=== PATIENT | male | born 1975 | race Caucasian/White ===

== ENCOUNTER 2018-06-17 09:52 | Inpatient (IN) | payer BC, OTHER ==
[~2018-06-17] VITALS: Ht 172.7 cm; Wt 116.6 kg
[2018-06-17] MEDS ORDERED: methylPREDNISolone SOD SUCC 125 MG/2 ML VL IM ONE (10:45)
[2018-06-17] MEDS ORDERED: cefTRIAXone SOD 1,000 MG VL IM ONE (10:45)
[2018-06-17] MEDS ORDERED: SODIUM CHLORIDE 0.9% 1,000 ML IV ONE (11:00)
[2018-06-17] MEDS ORDERED: InsuLIN REG 1unit/0.01ml Soln (100units/ml) IV ONE (11:00)
[2018-06-17 11:36] LABS: Basophils # (auto) 0 uL; Basophils % (auto) 0.4 % (0.0-2.0); Eosinophils # (auto) 0 uL; Eosinophils % (auto) 0.4 % (0.0-7.0); Hematocrit 46.1 % (41.0-53.0); Hemoglobin 15.6 g/dL (13.5-17.5); Lymphocytes # (auto) 1.4 uL; Lymphocytes % (auto) 13.1 % (10.0-50.0); Mean Corpuscular Hemoglobin 27.5 pg (28.0-32.0); Mean Corpuscular Hgb Conc. 33.8 g/dL (32.0-36.0); Mean Corpuscular Volume 81.4 fL (80.0-100.0); Neutrophils # (auto) 8.3 uL; Neutrophils % (auto) 77.1 % (37.0-80.0); Nucleated Red Blood Cells % 0.4 %; Platelet Count (auto) 185 10^3/uL (140-450); Red Blood Cells 5.66 10^6/uL (4.5-5.90); Red Cell Distribution Width 13.3 % (11.8-14.3); White Blood Cell 10.7 10^3/uL (4.4-10.8)
[2018-06-17 11:52] LABS: Potassium 4.3 mmol/L (3.5-5.1)
[2018-06-17 11:59] LABS: Albumin 3.1 g/dL (3.4-5.0); BUN/Creatinine Ratio 20.2; Total Protein 7.8 g/dL (6.4-8.2)
[2018-06-17] MEDS: SODIUM CHLORIDE 0.9% 1,000 ML IV SCH ×2 (12:15→21:02)
[2018-06-17] MEDS ORDERED: DEXTROSE (50%) 50ML SYRG IV PRN (12:15)
[2018-06-17] MEDS ORDERED: ACETAMINOPHEN/CODEINE#3 (300/30mg) TAB PO ONE (14:00)
[2018-06-17] MEDS: CLINDAMYCIN 300MG IV 50 ML IV SCH ×2 (14:25→21:44)
[2018-06-17] MEDS: ACCU-CHEK COMFORT CURVE STRIP VI SCH ×3 (17:06→23:55)
[2018-06-17] MEDS: InsuLIN REG 1unit/0.01ml Soln (100units/ml) SC SCH ×3 (17:14→23:56)
[2018-06-17 19:23] VITALS: BP 146/81
--- NOTE | 2018-06-17 19:51 | NUR ---
RECEIVED PATIENT FROM DAY SHIFT RN. PATIENT RESTING IN BED. FAMILY AT BEDSIDE. NO S/S OF DISTRESS NOTED. PATIENT ASKING FOR DINNER, WILL BRING TO PATIENT LATER. ACCU-CHECK, BS 326. INSULIN GIVEN ORDERED. POC INSTRUCTED AND ENCOURAGED PATIENT TO CALL FOR MANAGER FIBER IF NEEDED. BED IN LOWEST POSITION WITH SIDE RAILS UP X 2.CALL URIARTE WITHIN REACH. CONTINUE TO MONITOR FOR CHANGES Q1H AND PRN.
--- NOTE | 2018-06-17 22:30 | NUR ---
URINE SAMPLE COLLECTED AND SENT. CONTINUE CARE.
--- NOTE | 2018-06-17 23:56 | NUR ---
ACCU-CHECK, BS 327. INSULIN GIVEN ORDERED. CONTINUE TO MONITOR.
[2018-06-18 00:05] LABS: Urine Bacteria NONE SEEN /hpf (None Seen); Urine Blood Negative /uL (Negative); Urine Specific Gravity 1.026 (1.001-1.035); Urine WBC <1 /hpf (0 - 3)
[2018-06-18 00:06] VITALS: BP 149/92
--- NOTE | 2018-06-18 02:50 | NUR ---
PATIENT SLEEPING. NO S/S OF DISTRESS AND PAIN NOTED. CONTINUE CARE.
[2018-06-18] MEDS: ACCU-CHEK COMFORT CURVE STRIP VI SCH ×5 (04:14→21:39)
[2018-06-18] MEDS: InsuLIN REG 1unit/0.01ml Soln (100units/ml) SC SCH ×4 (04:14→21:40)
--- NOTE | 2018-06-18 04:14 | NUR ---
ACCU-CHECK, BS 253. INSULIN GIVEN ORDERED. CONTINUE TO MONITOR.
[2018-06-18] MEDS: SODIUM CHLORIDE 0.9% 1,000 ML IV SCH (05:08)
[2018-06-18] MEDS: CLINDAMYCIN 300MG IV 50 ML IV SCH ×2 (05:31→13:37)
--- NOTE | 2018-06-18 05:31 | NUR ---
PATIENT SLEEPING. NO S/S OF DISTRESS AND PAIN NOTED. CONTINUE TO MONITOR.
[2018-06-18 05:52] VITALS: BP 113/65
[2018-06-18 06:40] LABS: Basophils # (auto) 0 uL; Basophils % (auto) 0.1 % (0.0-2.0); Eosinophils # (auto) 0 uL; Hematocrit 45.3 % (41.0-53.0); Hemoglobin 15.1 g/dL (13.5-17.5); Lymphocytes % (auto) 7.7 % (10.0-50.0); Mean Corpuscular Hemoglobin 27.5 pg (28.0-32.0); Mean Corpuscular Hgb Conc. 33.3 g/dL (32.0-36.0); Mean Corpuscular Volume 82.5 fL (80.0-100.0); Monocytes # (auto) 0.7 uL; Monocytes % (auto) 5.9 % (0.0-12.0); Neutrophils # (auto) 10.9 uL; Neutrophils % (auto) 86.3 % (37.0-80.0); Platelet Count (auto) 207 10^3/uL (140-450); Red Blood Cells 5.49 10^6/uL (4.5-5.90); Red Cell Distribution Width 13.3 % (11.8-14.3); White Blood Cell 12.6 10^3/uL (4.4-10.8)
[2018-06-18 06:51] LABS: BUN/Creatinine Ratio 19.7; Calcium 8.9 mg/dL (8.5-10.1); Magnesium 2.6 mg/dL (1.6-2.6); Potassium 4.8 mmol/L (3.5-5.1)
[2018-06-18 06:52] LABS: INR 0.94 (0.9-1.15); Partial Thromboplastin Time 29.3 sec (23.78-33.04); Prothrombin Time 10.1 sec (9.27-12.13)
--- NOTE | 2018-06-18 08:00 | NUR ---
Opening Shift Note Assumed care of patient, awake, alert and oriented X4. No S/S of distress/SOB or pain. IV to left forearm, 20 gauge, patent and infusing 0.9% NS @ 125 ml/hr. Right groin abscess warm, red and moist, no drainage noted. Instructed on POC and to call for assist PRN, verbalized understanding. Bed locked, in lowest position, call light within reach, will continue to monitor for changes Q1hr and PRN.
[2018-06-18] MEDS: cefTRIAXone 1GM/50ML D5W 50 ML IV SCH (08:36)
[2018-06-18 09:00] VITALS: BP 132/85
[2018-06-18] MEDS: PANTOPRAZOLE 40 MG TAB PO SCH (11:04)
[2018-06-18 12:01] VITALS: BP 133/91
[2018-06-18] MEDS ORDERED: DEXTROSE (50%) 50ML SYRG IV PRN (12:15)
[2018-06-18 12:25] LABS: Alcohol, Urine < 3.0 mg/dL (0-5); Amphetamine Screen, Urine NEGATIVE (NEGATIVE); Barbiturate Scree,Urine NEGATIVE (NEGATIVE); Benzodiazephine Screen, Urine NEGATIVE (NEGATIVE); Cannabinoid Screen, Urine NEGATIVE (NEGATIVE); Cocaine Screen, Urine NEGATIVE (NEGATIVE); Opiate Scree,Urine NEGATIVE (NEGATIVE); Phencyclidine Screen, Urine NEGATIVE (NEGATIVE)
--- NOTE | 2018-06-18 12:27 | NUR ---
ROUNDS Dr Rahman at bedside for rounds, new orders received and followed through. Patient updated on plan of care, verbalized understanding, continue care.
[2018-06-18] MEDS ORDERED: VANCOMYCIN PER PHARMACY 0 MG IV SCH (14:30)
[2018-06-18] MEDS: VANCOMYCIN 1GM/250ML 250 ML IV SCH ×2 (16:16→23:11)
[2018-06-18 16:51] VITALS: BP 146/94
[2018-06-18] MEDS ORDERED: INSULIN 70/30 1unit/0.01ml Susp (100units/ml) SC SCH (18:00)
[2018-06-18] MEDS: metFORMIN HYDROCHLORIDE 500 MG TAB PO SCH (18:04)
--- NOTE | 2018-06-18 19:09 | NUR ---
Care endorsed to SHANE Smith, night nurse.
--- NOTE | 2018-06-18 19:30 | NUR ---
Opening shift note Patient in bed alert and oriented x 4, verbally coherent, able to make needs known. Patient's respiration even and unlabored. Patient denies pain and discomfort at this time. Plan of care discussed, patient verbalized understanding. Spouse at bedside. All needs attended, will continue to monitor.
[2018-06-18] MEDS ORDERED: ATORVASTATIN 20 MG TAB PO SCH (22:00)
[2018-06-18 22:15] VITALS: BP 151/96
--- NOTE | 2018-06-19 02:10 | NUR ---
PATIENT WOKE UP AND COMPLAINING OF MUSCLE PAIN. PER PT, "THIS IS THE FIRST TIME I AM FEELING THIS KIND OF MUSCLE PAIN AND THIS WOULD NOT HAPPEN IF YOU HAVE NOT GIVEN ME THE LIPITOR EARLIER" EXPLAINED TO PATIENT THAT IT WAS ORDERED BY THE DOCTOR. FURTHER EXPLAINED THAT ONLY 1/2 A TAB = 10MG WAS GIVEN AND WILL INFORM AM SHIFT NURSE TO DISCUSS WITH MD IN THE MORNING IF THERE IS A NEED TO DISCONTINUE THE MEDICATION. INFORMED PATIENT THAT IT COULD BE A LOT OF REASONS FOR HIS MUSCLE PAIN SINCE HE WAS DIAGNOSED WITH NEW ONSET DIABETES WITH SYMPTOMS OF NEUROPATHY. PATIENT ALSO HAS BEEN TAKING ANTIBIOTIC. PATIENT REFUSED FOR NURSE TO GET AN ORDER FOR PAIN MEDICATION AT THIS TIME. INFORMED NURSE THAT IF THE PAIN DOES NOT SUBSIDE, HE WILL LET THE NURSE KNOW THE NEED FOR PAIN MEDICATION ORDER. WILL CONTINUE TO MONITOR.
--- NOTE | 2018-06-19 04:14 | NUR ---
PATIENT COMPLAINED OF MODERATE PAIN TO LEFT GROIN ABSCESS. NO PAIN MEDICATION AVAILABLE. PAGE DERRICK GUTIERREZ AWAITING CALL BACK. Addendum: 06/19/18 at 0541 by Silvana Mcnulty RN PATIENT ALSO COMPLAINED OF MODERATE MUSCLE PAIN TO "ALL OVER MY BODY".
--- NOTE | 2018-06-19 04:50 | NUR ---
RECEIVED CALL BACK FROM RECOVERY AGENT REGARDING PAIN MEDICATION. RECEIVED NEW ORDER FROM GUTIERREZ, ALL ORDERS NOTED AND CARRIED OUT.
[2018-06-19] MEDS ORDERED: HYDROcodone-ACET 5/325MG TAB PO PRN (05:00)
--- NOTE | 2018-06-19 05:00 | NUR ---
PAIN MEDICATION ADMINISTERED FOR MUSCLE PAIN AND LEFT GROIN ABSCESS. WILL CONTINUE TO MONITOR.
[2018-06-19 05:05] VITALS: BP 149/107
[2018-06-19 06:29] LABS: Basophils # (auto) 0 uL; Basophils % (auto) 0.2 % (0.0-2.0); Eosinophils # (auto) 0.1 uL; Eosinophils % (auto) 0.7 % (0.0-7.0); Hematocrit 41.7 % (41.0-53.0); Hemoglobin 14.1 g/dL (13.5-17.5); Lymphocytes # (auto) 1.5 uL; Lymphocytes % (auto) 14.8 % (10.0-50.0); Mean Corpuscular Hemoglobin 27.9 pg (28.0-32.0); Mean Corpuscular Hgb Conc. 33.9 g/dL (32.0-36.0); Mean Corpuscular Volume 82.4 fL (80.0-100.0); Neutrophils # (auto) 7.6 uL; Neutrophils % (auto) 74.3 % (37.0-80.0); Platelet Count (auto) 194 10^3/uL (140-450); Red Blood Cells 5.06 10^6/uL (4.5-5.90); Red Cell Distribution Width 13.2 % (11.8-14.3); White Blood Cell 10.2 10^3/uL (4.4-10.8)
[2018-06-19] MEDS: ACCU-CHEK COMFORT CURVE STRIP VI SCH ×4 (06:35→21:47)
[2018-06-19] MEDS: InsuLIN REG 1unit/0.01ml Soln (100units/ml) SC SCH ×4 (06:35→21:47)
[2018-06-19 06:39] LABS: Calcium 8.2 mg/dL (8.5-10.1); Potassium 3.7 mmol/L (3.5-5.1)
[2018-06-19 06:43] LABS: BUN/Creatinine Ratio 16.7
--- NOTE | 2018-06-19 08:00 | NUR ---
Opening Shift Note Assumed care of patient, awake, alert and oriented X4. No S/S of distress/SOB or pain. Iv to right forearm, 20 gauge, patent and infusing 0.9% NS @ 125 ml/hr. Right groin abscess draining purulent drainage with mild odor, redness around surrounding area, open to air. Instructed on POC and to call for assist PRN, verbalized understanding. Bed locked, in lowest position, call light within reach, will continue to monitor for changes Q1hr and PRN.
[2018-06-19 09:21] VITALS: BP 139/75
[2018-06-19] MEDS ORDERED: LISINOPRIL 5 MG TAB PO SCH (10:00)
[2018-06-19] MEDS: cefTRIAXone 1GM/50ML D5W 50 ML IV SCH (10:02)
[2018-06-19] MEDS: metFORMIN HYDROCHLORIDE 500 MG TAB PO SCH ×2 (10:02→17:37)
[2018-06-19] MEDS: PANTOPRAZOLE 40 MG TAB PO SCH (10:02)
[2018-06-19] MEDS: VANCOMYCIN 1GM/250ML 250 ML IV SCH (10:02)
--- NOTE | 2018-06-19 10:05 | NUR ---
Patient complaining of ringing in bilateral ears. Currently infusing Vancomycin IVPB. Infusion stopped, Dr Rahman notified, verbalized understanding. Will continue to monitor Q 1 hour and PRN.
--- NOTE | 2018-06-19 11:21 | NUR ---
ROUNDS Dr Rahman at bedside for rounds, new order received and followed through. Patient updated on plan of care, verbalized understanding.
[2018-06-19 13:08] VITALS: BP 147/88
[2018-06-19] MEDS: PIPERACILLIN-TAZO 4.5GM 100 ML IV SCH ×2 (15:07→21:47)
[2018-06-19 17:00] VITALS: BP 142/101
[2018-06-19] MEDS: INSULIN 70/30 1unit/0.01ml Susp (100units/ml) SC SCH (17:38)
--- NOTE | 2018-06-19 19:21 | NUR ---
Care endorsed to SHANE Whittaker, night nurse.
--- NOTE | 2018-06-19 19:49 | NUR ---
report received from day rn poc reviewed
[2018-06-19 21:30] VITALS: BP 141/85
--- NOTE | 2018-06-19 22:05 | NUR ---
PTS BS 119 REEDUCATED PT ON BLOOD GLUCOSE LEVELS, ALL QUESTIONS AND CONCERNS ADDRESSED
[2018-06-20 05:26] VITALS: BP 149/93
[2018-06-20] MEDS: PIPERACILLIN-TAZO 4.5GM 100 ML IV SCH (06:10)
[2018-06-20] MEDS: ACCU-CHEK COMFORT CURVE STRIP VI SCH ×4 (06:10→21:34)
[2018-06-20] MEDS: InsuLIN REG 1unit/0.01ml Soln (100units/ml) SC SCH ×4 (06:11→21:33)
--- NOTE | 2018-06-20 07:25 | NUR ---
report given to am nurse poc reviewed
--- NOTE | 2018-06-20 08:00 | NUR ---
Opening Shift Note Assumed care of patient, awake, alert and oriented X4. No S/S of distress/SOB or pain. IV to left forearm, 20 gauge, patent and infusing 0.9% NS @ 125 ml/hr. Instructed on POC and to call for assist PRN, verbalized understanding. Bed locked, in lowest position, call light within reach, will continue to monitor for changes Q1hr and PRN.
[2018-06-20] MEDS: metFORMIN HYDROCHLORIDE 500 MG TAB PO SCH (08:13)
[2018-06-20] MEDS: INSULIN 70/30 1unit/0.01ml Susp (100units/ml) SC SCH ×2 (08:13→16:10)
[2018-06-20 08:41] VITALS: BP 151/88
--- NOTE | 2018-06-20 08:43 | NUR ---
LINEN CHANGE PT GIVEN LINEN CHANGE
[2018-06-20] MEDS: PANTOPRAZOLE 40 MG TAB PO SCH (09:51)
[2018-06-20] MEDS: LISINOPRIL 10 MG TAB PO SCH (09:51)
--- NOTE | 2018-06-20 09:51 | NUR ---
ROUNDS Dr Rahman at bedside for rounds, new orders received and followed through. Patient updated on plan of care, verbalized understanding.
[2018-06-20] MEDS: LEVOFLOXACIN 750MG 150 ML IV SCH (11:10)
--- NOTE | 2018-06-20 12:40 | NUR ---
Nutrition Consult/Assessment Notes please see attached link for complete assessment Est. Needs based on ABW (93 kg): 7534-1058 kcal (20-23 kcal/kgBW), 93-102 gms pro (1.0-1.1 gms/kgBW d/t wounds). Will continue to monitor pertinent labs and reassess nutrient need prn Addendum: 06/20/18 at [address] Amended: Links added.
[2018-06-20 13:00] VITALS: BP 127/81
[2018-06-20] MEDS: metFORMIN HYDROCHLORIDE 850 MG TAB PO SCH (16:10)
[2018-06-20 16:43] VITALS: BP 127/90
--- NOTE | 2018-06-20 19:28 | NUR ---
Care endorsed to SHANE Fairbanks, night nurse.
--- NOTE | 2018-06-20 19:55 | NUR ---
assumed care, pt. awake, relatives at bedside, no c/o pain, no sob.
[2018-06-20 21:31] VITALS: BP 141/93
[2018-06-20] MEDS: MULTIPLE VITAMINS W/ MINERALS TAB PO SCH (21:33)
[2018-06-20] MEDS: ASCORBIC ACID 500 MG TAB PO SCH (21:33)
[2018-06-21 05:15] VITALS: BP 130/87
[2018-06-21] MEDS: ACCU-CHEK COMFORT CURVE STRIP VI SCH ×4 (06:09→21:09)
[2018-06-21] MEDS: InsuLIN REG 1unit/0.01ml Soln (100units/ml) SC SCH ×4 (06:09→21:09)
--- NOTE | 2018-06-21 07:45 | NUR ---
OPENING SHIFT PATIENT AWAKE, ALERT, AND ORIENTED X4. RESPIRATIONS EVEN AND UNLABORED. LEFT GROIN ABSCESS, FIRM AND TENDER TO PALPITATION, WITH MINIMAL SEROUS DRAINAGE OBSERVED. NO S/S OF DISTRESS OR SOB. DISCUSSED POC WITH PATIENT. PATIENT VERBALIZED UNDERSTANDING. BED IS IN LOWEST POSITION, SIDE RAILS UP X2, AND CALL LIGHT WITHIN REACH. WILL CONTINUE TO MONITOR Q1 HOUR AND PRN.
[2018-06-21] MEDS: metFORMIN HYDROCHLORIDE 850 MG TAB PO SCH ×2 (08:28→18:12)
[2018-06-21] MEDS: INSULIN 70/30 1unit/0.01ml Susp (100units/ml) SC SCH ×2 (08:28→18:12)
[2018-06-21 09:08] VITALS: BP 143/98
--- NOTE | 2018-06-21 12:20 | NUR ---
WOUND CARE NOTE: IN TO SEE PATIENT AT THIS TIME FOR WOUND TO LEFT INGUINAL AREA. PATIENT ADMITTED TO [facility] WITH DIAGNOSIS OF ABSCESS. HE IS NOTED TO HAVE A SMALL DRAINING ABSCESS TO THE LEFT INGUINAL AREA, DRAINING LIGHT AMOUNTS OF PURULENT DRAINAGE. THERE IS ERYTHEMA AND INDURATION NOTED TO UPPER MEDIAL THIGH TO LEFT INGUINAL GROIN. AREA IS CIRCLED WITH BLACK MARKER. WOUND PHOTO TAKEN FOR REFERENCE. SURGEON HAS STATED THAT PATIENT WOULD BENEFIT FROM CONSERVATIVE MANAGEMENT. PATIENT MAY BENEFIT FROM WARM COMPRESSES BID/PRN TO HELP DRAW OUT MORE DRAINAGE, SURGICAL INTERVENTION IS NOT BEING ENTERTAINED AT THIS TIME. PATIENT SHOULD ALSO HAVE PRN DRESSING CHANGES TO LEFT INGUINAL AREA WITH ABD PAD, SECURING WITH DISPOSABLE UNDERWEAR, DIETARY CONSULT, CONTINUED MONITORING BY WOUND CARE TEAM.
--- NOTE | 2018-06-21 12:30 | NUR ---
WOUND CARE R.N. WOUND CARE R.N. AT BEDSIDE R.N. RECOMMENDATION IS FOR PATIENT HAVE INTERVENTION TO DRAIN ABSCESS WILL INFORM Irma
[2018-06-21] MEDS: LEVOFLOXACIN 750MG 150 ML IV SCH (12:54)
[2018-06-21] MEDS: PANTOPRAZOLE 40 MG TAB PO SCH (12:54)
[2018-06-21] MEDS: MULTIPLE VITAMINS W/ MINERALS TAB PO SCH ×2 (12:54→21:08)
[2018-06-21] MEDS: ASCORBIC ACID 500 MG TAB PO SCH ×2 (12:55→21:08)
[2018-06-21] MEDS: LISINOPRIL 10 MG TAB PO SCH (12:55)
[2018-06-21 13:00] VITALS: BP 138/99
--- NOTE | 2018-06-21 16:46 | NUR ---
DR. MARIBELL Will AT BEDSIDE DISCUSSING POC WITH PATIENT. PATIENT VERBALIZED UNDERSTANDING AT BEDSIDE PATIENT WILL NOT BE D/C'D TODAY. I.V ANTIBIOTICS WILL BE CONTINUED AND ZOSYN WILL BE ADDED TO MEDICATION REGIMEN PATIENT IS CONTINUING TO APPLY HEAT TO LEFT GROIN ABSCESS AREA TO HELP RELIEVE PRESSURE
[2018-06-21 17:00] VITALS: BP 130/87
[2018-06-21] MEDS: PIPERACILLIN-TAZOB 3.375GM 100 ML IV SCH (17:04)
--- NOTE | 2018-06-21 18:38 | NUR ---
END OF SHIFT PATIENT RESTING IN BED. NO S/S OF DISTRESS, SOB, OR PAIN. AT BEDSIDE. RESPIRATIONS EVEN AND UNLABORED. BED IS IN LOWEST POSITION, SIDE RAILS UP X2, AND CALL LIGHT WITHIN REACH. WILL ENDORSE ARE TO JOINT CUTTER MACHINE R.N.
--- NOTE | 2018-06-21 19:20 | NUR ---
ASSUMED CARE, PT. AWAKE, RELATIVE AT BEDSIDE, NO C/O PAIN, NO SOB.
[2018-06-21 21:53] VITALS: BP 138/98
[2018-06-22] MEDS: PIPERACILLIN-TAZOB 3.375GM 100 ML IV SCH ×5 (00:02→23:41)
[2018-06-22 04:58] VITALS: BP 130/84
[2018-06-22 05:39] LABS: Basophils # (auto) 0 uL; Basophils % (auto) 0.5 % (0.0-2.0); Eosinophils # (auto) 0.2 uL; Eosinophils % (auto) 2.4 % (0.0-7.0); Hematocrit 42.2 % (41.0-53.0); Hemoglobin 14.5 g/dL (13.5-17.5); Lymphocytes # (auto) 1.9 uL; Lymphocytes % (auto) 24.7 % (10.0-50.0); Mean Corpuscular Hemoglobin 27.8 pg (28.0-32.0); Mean Corpuscular Hgb Conc. 34.4 g/dL (32.0-36.0); Mean Corpuscular Volume 80.8 fL (80.0-100.0); Monocytes # (auto) 0.7 uL; Monocytes % (auto) 8.7 % (0.0-12.0); Neutrophils % (auto) 63.7 % (37.0-80.0); Nucleated Red Blood Cells % 0.2 %; Platelet Count (auto) 234 10^3/uL (140-450); Red Blood Cells 5.22 10^6/uL (4.5-5.90); Red Cell Distribution Width 13.1 % (11.8-14.3); White Blood Cell 7.9 10^3/uL (4.4-10.8)
[2018-06-22 05:55] LABS: BUN/Creatinine Ratio 14.3; Calcium 8.9 mg/dL (8.5-10.1)
[2018-06-22] MEDS: InsuLIN REG 1unit/0.01ml Soln (100units/ml) SC SCH ×4 (06:05→21:48)
[2018-06-22] MEDS: ACCU-CHEK COMFORT CURVE STRIP VI SCH ×4 (06:06→21:48)
--- NOTE | 2018-06-22 07:35 | NUR ---
OPENING SHIFT PATIENT AWAKE, ALERT, AND ORIENTED X4. RESPIRATIONS EVEN AND UNLABORED. LEFT GROIN ABSCESS, FIRM AND TENDER TO PALPITATION, WITH MINIMAL SEROSANGUINEOUS DRAINAGE OBSERVED. NO S/S OF DISTRESS OR SOB. DISCUSSED POC WITH PATIENT. PATIENT VERBALIZED UNDERSTANDING. BED IS IN LOWEST POSITION, SIDE RAILS UP X2, AND CALL LIGHT WITHIN REACH. WILL CONTINUE TO MONITOR Q1 HOUR AND PRN.
[2018-06-22] MEDS: metFORMIN HYDROCHLORIDE 850 MG TAB PO SCH ×2 (08:14→17:53)
[2018-06-22] MEDS: INSULIN 70/30 1unit/0.01ml Susp (100units/ml) SC SCH ×3 (08:14→17:57)
[2018-06-22 08:29] VITALS: BP 133/83
[2018-06-22] MEDS: PANTOPRAZOLE 40 MG TAB PO SCH (11:22)
[2018-06-22] MEDS: LISINOPRIL 10 MG TAB PO SCH (11:22)
[2018-06-22] MEDS: ASCORBIC ACID 500 MG TAB PO SCH ×2 (11:22→21:47)
[2018-06-22] MEDS: MULTIPLE VITAMINS W/ MINERALS TAB PO SCH ×2 (11:22→21:47)
--- NOTE | 2018-06-22 11:50 | NUR ---
DR. MARIBELL Solis AT BEDSIDE DISCUSSING POC WITH PATIENT, PATIENT VERBALIZED UNDERSTANDING.
[2018-06-22 12:57] VITALS: BP 139/92
--- NOTE | 2018-06-22 16:56 | NUR ---
PATIENT REFUSED WOUND CARE ORDERS PLACED BY DR. REYNA FOR ABSCESS TO BE CLEANED WITH NORMAL SALINE, PATTED DRY WITH STERILE GUAZE, AND FOR ABDOMINAL PAD DRESSING TO BE PLACED AND SECURED WITH NETTED BRIEFS PATIENT STATES, "IT IS FINE IS. IT IS CONSTANTLY LEAKING AND I LIKE TO USE WET, HOT COMPRESSES ON IT. " INFORMED PATIENT OF RISKS AND BENEFITS OF DRESSING, AND REFUSAL OF DRESSING PATIENT VERBALIZED UNDERSTANDING
[2018-06-22 17:25] VITALS: BP_SYST 118; BP_SYST 123; BP_DIAS 58; BP_DIAS 76
--- NOTE | 2018-06-22 18:37 | NUR ---
END OF SHIFT PATIENT RESTING IN BED. NO S/S OF DISTRESS, SOB, OR PAIN. RESPIRATIONS EVEN AND UNLABORED. BED IS IN LOWEST POSITION, SIDE RAILS UP X2, AND CALL LIGHT WITHIN REACH. WILL ENDORSE ARE TO PLY BANDER R.N.
--- NOTE | 2018-06-22 19:55 | NUR ---
assumed care, pt. awake, relative at bedside, no c/o pain, no sob.
[2018-06-22 21:42] VITALS: BP 133/82
[2018-06-23 04:46] VITALS: BP 130/83
[2018-06-23 05:53] LABS: Basophils # (auto) 0 uL; Basophils % (auto) 0.4 % (0.0-2.0); Eosinophils # (auto) 0.2 uL; Eosinophils % (auto) 2.7 % (0.0-7.0); Hematocrit 41.7 % (41.0-53.0); Hemoglobin 14.4 g/dL (13.5-17.5); Mean Corpuscular Hemoglobin 28.1 pg (28.0-32.0); Mean Corpuscular Hgb Conc. 34.6 g/dL (32.0-36.0); Mean Corpuscular Volume 81.2 fL (80.0-100.0); Monocytes # (auto) 0.6 uL; Monocytes % (auto) 8.7 % (0.0-12.0); Neutrophils # (auto) 4.6 uL; Neutrophils % (auto) 61.2 % (37.0-80.0); Platelet Count (auto) 221 10^3/uL (140-450); Red Blood Cells 5.14 10^6/uL (4.5-5.90); Red Cell Distribution Width 13.1 % (11.8-14.3); White Blood Cell 7.5 10^3/uL (4.4-10.8)
[2018-06-23] MEDS: InsuLIN REG 1unit/0.01ml Soln (100units/ml) SC SCH ×4 (06:00→22:29)
[2018-06-23] MEDS: PIPERACILLIN-TAZOB 3.375GM 100 ML IV SCH (06:00)
[2018-06-23] MEDS: ACCU-CHEK COMFORT CURVE STRIP VI SCH ×4 (06:02→22:00)
[2018-06-23 06:09] LABS: BUN/Creatinine Ratio 11.6; Calcium 8.7 mg/dL (8.5-10.1); Potassium 3.9 mmol/L (3.5-5.1)
--- NOTE | 2018-06-23 07:52 | NUR ---
OPENING SHIFT NOTE ASSUMED CARE OF PATIENT. PATIENT AWAKE AND ALERT SITTING UP IN BED. NO S/S OF DISTRESS OR SOB NOTED. REVIEWED POC WITH PATIENT AND INSTRUCTED TO CALL FOR ASSIST NEEDED. WILL CONTINUE TO MONITOR.
[2018-06-23 08:00] VITALS: BP 152/96
--- NOTE | 2018-06-23 08:30 | NUR ---
PATIENT TEACHING PATIENT INSTRUCTED ON USE OF ACCU CHECK MACHINE, PATIENT STATED HE HAS ONE AT BEDSIDE AND HAS BEEN USING TO CHECK WELL. PATIENT INFORMED OF S/S OF LOW BLOOD SUGAR AND PATIENT VERBALIZED UNDERSTANDING AT THIS TIME. WILL CONTINUE TO MONITOR.
[2018-06-23] MEDS: ASCORBIC ACID 500 MG TAB PO SCH ×2 (08:37→22:29)
[2018-06-23] MEDS: metFORMIN HYDROCHLORIDE 850 MG TAB PO SCH ×2 (08:37→18:05)
[2018-06-23] MEDS: MULTIPLE VITAMINS W/ MINERALS TAB PO SCH ×2 (08:37→22:32)
[2018-06-23] MEDS: PANTOPRAZOLE 40 MG TAB PO SCH (08:38)
[2018-06-23] MEDS: LISINOPRIL 10 MG TAB PO SCH (08:38)
[2018-06-23] MEDS: INSULIN 70/30 1unit/0.01ml Susp (100units/ml) SC SCH ×2 (08:39→18:07)
[2018-06-23] MEDS ORDERED: HYDROcodone-ACET 5/325MG TAB PO PRN (09:15)
[2018-06-23] MEDS: CIPROFLOXACIN 400MG/200ML 200 ML IV SCH ×2 (11:28→22:33)
[2018-06-23 12:00] VITALS: BP 119/73
[2018-06-23 16:58] VITALS: BP 123/74
--- NOTE | 2018-06-23 19:03 | NUR ---
END OF SHIFT NOTE PATIENT RESTING COMFORTABLY IN BED AT THIS TIME. NO S/S OF DISTRESS OR SOB NOTED. BED IN LOWEST LOCKED POSITION, CALL LIGHT WITHIN REACH. WILL ENDORSE CARE TO NOC RN.
[2018-06-23 22:00] VITALS: BP 124/80
[2018-06-23] MEDS ORDERED: ATORVASTATIN 20 MG TAB PO SCH (22:00)
[2018-06-24 05:00] VITALS: BP 119/79
[2018-06-24] MEDS: ACCU-CHEK COMFORT CURVE STRIP VI SCH ×2 (05:52→12:02)
[2018-06-24] MEDS: InsuLIN REG 1unit/0.01ml Soln (100units/ml) SC SCH ×2 (05:53→12:02)
--- NOTE | 2018-06-24 06:59 | NUR ---
The patient had an uneventful night, tolerated treatments well, had no complaints. Denied pain throughout the night. The patient decided to refused the scheduled Atorvaststin . After discuss it with his they decide it was not worth taking it and possibly staying in the Hospital longer. Will continue to monitor.
[2018-06-24] MEDS: metFORMIN HYDROCHLORIDE 850 MG TAB PO SCH (08:30)
[2018-06-24] MEDS: INSULIN 70/30 1unit/0.01ml Susp (100units/ml) SC SCH (08:30)
[2018-06-24 09:00] VITALS: BP 139/93
[2018-06-24] MEDS: ASCORBIC ACID 500 MG TAB PO SCH (10:25)
[2018-06-24] MEDS: MULTIPLE VITAMINS W/ MINERALS TAB PO SCH (10:25)
[2018-06-24] MEDS: PANTOPRAZOLE 40 MG TAB PO SCH (10:25)
[2018-06-24] MEDS: LISINOPRIL 10 MG TAB PO SCH (10:26)
[2018-06-24] MEDS: CIPROFLOXACIN 400MG/200ML 200 ML IV SCH (10:26)
[2018-06-24] MEDS ORDERED: ASCO500T11 PO (10:31)
[2018-06-24] MEDS ORDERED: LISI10TA6 PO (10:31)
[2018-06-24] MEDS ORDERED: CIPR-173 PO (10:31)
[2018-06-24] MEDS ORDERED: METF850T PO (10:31)
[2018-06-24 13:31] VITALS: BP 139/93
--- NOTE | 2018-06-24 14:44 | NUR ---
DISCHARGED PATIENT DISCHARGED HOME VIA AMBULATORY TO PRIVATE FAMILY VEHICLE AFTER ALL DISCHARGE INSTRUCTIONS GIVEN AND ALL QUESTIONS AND CONCERNS ADDRESSED. DIABETIC EDUCATION GIVEN INCLUDING INFORMATION ON CLASSES AVAILABLE, HOW TO CHECK BLOOD SUGAR, HOW TO ADMINISTER INSULIN, DIET INFORMATION, FOOT CARE AND MORE GIVEN TO PATIENT AND SPOUSE. PATIENT WAS ASSISTED WITH FINDING A NEW PRIMARY MD AND A FOLLOW UP APPOINTMENT WAS SET UP. WOUND PICTURE TAKEN AT THIS TIME. IV WAS REMOVED USING CLEAN STERILE TECHNIQUE, CATHETER WAS INTACT UPON REMOVAL AND PRESSURE DRESSING PLACED. PATIENT SHOWED NO S/S OF DISTRESS OR SOB NOTED AT THIS TIME.
== END 2018-06-24 14:48 | disposition home or self-care (01) | DRG 603 ==
LOC: ER 09:52 → OVERFLOW 12:10 → WEST WING 18:30
PROVIDERS: ADMIT Nurse Practitioner Acute Care; ATTEND Internal Medicine
DX: L02.214 Cutaneous abscess of groin (principal); E44.0 Moderate protein-calorie malnutrition; L03.314 Cellulitis of groin; E11.65 Type 2 diabetes mellitus with hyperglycemia; E66.01 Morbid (severe) obesity due to excess calories; E78.5 Hyperlipidemia, unspecified; E78.1 Pure hyperglyceridemia; I10 Essential (primary) hypertension; B96.20 Unspecified Escherichia coli [E. coli] as the cause of diseases classified elsewhere; E86.0 Dehydration; H93.19 Tinnitus, unspecified ear; Z88.7 Allergy status to serum and vaccine; Z68.39 Body mass index [BMI] 39.0-39.9, adult
CPT/HCPCS: 36415; 71045; 80048; 80053; 80061; 80307; 81001; 82962; 83036; 83605; 83735; 84443; 85025; 85610; 85730; 87040; 87077; 87186; 87205; 93926; 96361; 96372; 96374; G0378; J0696; J1815; J1956; J2543; J3490

== ENCOUNTER → 2018-10-03 | Outpatient (CLI) | payer BC ==
[~2018-10-03] MED LIST: ASCO500T11 PO; CIPR-173 PO; LISI10TA6 PO; METF850T PO
[2018-10-03 09:48] LABS: Cholesterol 280 mg/dL (< 200)
[2018-10-03 09:50] LABS: HDL Cholesterol 31 mg/dL (40-59); LDL Cholesterol 203 mg/dL (< 100); Triglycerides 244 mg/dL (< 150)
== END | disposition home or self-care (01) ==
LOC: LAB 08:45
PROVIDERS: ATTEND Internal Medicine
DX: E11.9 Type 2 diabetes mellitus without complications (principal)
CPT/HCPCS: 36415; 80061; 82043; 83036

== ENCOUNTER → 2018-11-04 | Outpatient (CLI) | payer BC ==
[2018-11-04 16:05] LABS: Albumin 3.8 g/dL (3.4-5.0); Calcium 8.8 mg/dL (8.5-10.1); Potassium 4.5 mmol/L (3.5-5.1)
[2018-11-04 16:11] LABS: BUN/Creatinine Ratio 24.5; Bilirubin, Total 0.4 mg/dL (0.2-1.0); Total Protein 7.7 g/dL (6.4-8.2)
== END | disposition home or self-care (01) ==
LOC: LAB 15:15
PROVIDERS: ATTEND Internal Medicine
DX: E11.9 Type 2 diabetes mellitus without complications (principal)
CPT/HCPCS: 36415; 80053

== ENCOUNTER → 2019-01-07 | Outpatient (CLI) | payer BC ==
[2019-01-07 15:18] LABS: Basophils # (auto) 0 uL; Basophils % (auto) 0.5 % (0.0-2.0); Eosinophils # (auto) 0.1 uL; Eosinophils % (auto) 1.5 % (0.0-7.0); Hematocrit 43.6 % (41.0-53.0); Hemoglobin 14.8 g/dL (13.5-17.5); Lymphocytes # (auto) 2.2 uL; Lymphocytes % (auto) 25.3 % (10.0-50.0); Mean Corpuscular Hemoglobin 27.8 pg (28.0-32.0); Mean Corpuscular Volume 81.8 fL (80.0-100.0); Monocytes # (auto) 0.7 uL; Monocytes % (auto) 7.7 % (0.0-12.0); Neutrophils # (auto) 5.5 uL; Nucleated Red Blood Cells % 0.1 %; Platelet Count (auto) 202 10^3/uL (140-450); Red Blood Cells 5.34 10^6/uL (4.5-5.90); Red Cell Distribution Width 13.5 % (11.8-14.3); White Blood Cell 8.5 10^3/uL (4.4-10.8)
[2019-01-07 15:38] LABS: Urine Blood Negative /uL (Negative); Urine Specific Gravity 1.019 (1.001-1.035)
[2019-01-07 15:42] LABS: Albumin 3.7 g/dL (3.4-5.0); BUN/Creatinine Ratio 28.4; Calcium 8.4 mg/dL (8.5-10.1); Potassium 4.4 mmol/L (3.5-5.1); Uric Acid 7.4 mg/dL (3.5-7.2)
[2019-01-07 15:45] LABS: Bilirubin, Total 0.4 mg/dL (0.2-1.0); Total Protein 7.7 g/dL (6.4-8.2)
[2019-01-07 15:52] LABS: Creatinine, Urine 79 mg/dL (30.0-125.0); Protein, Urine 79.9 mg/dL (0.0-11.9)
[2019-01-08 12:39] LABS: Hepatitis B Surface Antigen Negative (Negative)
[2019-01-08 14:04] LABS: Hepatitis C Antibody Negative (Negative)
== END | disposition home or self-care (01) ==
LOC: LAB 14:40
PROVIDERS: ATTEND Internal Medicine
DX: E55.9 Vitamin D deficiency, unspecified (principal); R80.9 Proteinuria, unspecified; B17.9 Acute viral hepatitis, unspecified; R79.82 Elevated C-reactive protein (CRP); M10.9 Gout, unspecified; D63.1 Anemia in chronic kidney disease; N18.3 Chronic kidney disease, stage 3 (moderate); R70.0 Elevated erythrocyte sedimentation rate; N39.0 Urinary tract infection, site not specified; R76.0 Raised antibody titer; E21.3 Hyperparathyroidism, unspecified
CPT/HCPCS: 36415; 80053; 80069; 81003; 82306; 82570; 83970; 84156; 84550; 85025; 85652; 86038; 86160; 86162; 86803; 87340

== ENCOUNTER → 2019-02-16 | Outpatient (CLI) | payer BC ==
[2019-02-16 16:24] LABS: Protein, Urine 51.9 mg/dL (0.0-11.9)
[2019-02-16 16:31] LABS: 24 Hr. Total Protein, Urine 1899.5 mg/24 Hr (<149.1)
[2019-02-16 16:53] LABS: Creatinine Clearance, Urine 814.27 mL/min (75-115)
== END | disposition home or self-care (01) ==
LOC: LAB 15:12
PROVIDERS: ATTEND Internal Medicine
DX: E11.22 Type 2 diabetes mellitus with diabetic chronic kidney disease (principal); N18.3 Chronic kidney disease, stage 3 (moderate); R80.9 Proteinuria, unspecified; Z88.7 Allergy status to serum and vaccine
CPT/HCPCS: 82575; 84156

== ENCOUNTER → 2019-02-24 | Outpatient (CLI) | payer BC ==
[2019-02-24 14:23] LABS: Cholesterol 278 mg/dL (< 200); HDL Cholesterol 32 mg/dL (40-59); LDL Cholesterol 165 mg/dL (< 100); Triglycerides 335 mg/dL (< 150)
== END | disposition home or self-care (01) ==
LOC: LAB 13:37
PROVIDERS: ATTEND Internal Medicine
DX: E11.9 Type 2 diabetes mellitus without complications (principal)
CPT/HCPCS: 36415; 80061; 82043; 83036

== ENCOUNTER → 2019-06-03 | Outpatient (CLI) | payer BC ==
[2019-06-03 17:48] LABS: Albumin 3.5 g/dL (3.4-5.0); Calcium 8.9 mg/dL (8.5-10.1); Potassium 4.1 mmol/L (3.5-5.1)
[2019-06-03 17:53] LABS: Bilirubin, Total 0.5 mg/dL (0.2-1.0); Total Protein 7.7 g/dL (6.4-8.2)
== END | disposition home or self-care (01) ==
LOC: LAB 15:19
PROVIDERS: ATTEND Internal Medicine
DX: E11.22 Type 2 diabetes mellitus with diabetic chronic kidney disease (principal); N18.3 Chronic kidney disease, stage 3 (moderate); R80.9 Proteinuria, unspecified
CPT/HCPCS: 36415; 80053; 80061; 82306

== ENCOUNTER → 2019-06-19 | Outpatient (CLI) | payer BC ==
[2019-06-19 16:03] LABS: Albumin 3.5 g/dL (3.4-5.0)
[2019-06-19 16:08] LABS: Bilirubin, Direct 0.1 mg/dL (0-0.2); Bilirubin, Total 0.6 mg/dL (0.2-1.0); Total Protein 7.6 g/dL (6.4-8.2)
== END | disposition home or self-care (01) ==
LOC: LAB 15:20
PROVIDERS: ATTEND Internal Medicine
DX: E78.5 Hyperlipidemia, unspecified (principal)
CPT/HCPCS: 36415; 80076

== ENCOUNTER → 2019-08-05 | Outpatient (CLI) | payer BC ==
[2019-08-05 15:41] LABS: Calcium 8.8 mg/dL (8.5-10.1); Potassium 4.1 mmol/L (3.5-5.1)
[2019-08-05 15:44] LABS: BUN/Creatinine Ratio 16.8
== END | disposition home or self-care (01) ==
LOC: LAB 15:08
PROVIDERS: ATTEND Internal Medicine
DX: E11.9 Type 2 diabetes mellitus without complications (principal); E78.5 Hyperlipidemia, unspecified
CPT/HCPCS: 36415; 80048; 80061; 83036

== ENCOUNTER → 2019-08-19 | Outpatient (CLI) | payer BC ==
[2019-08-19 15:09] LABS: Basophils # (auto) 0.1 10 ^3/uL (0-0.2); Basophils % (auto) 0.6 % (0.0-2.0); Eosinophils # (auto) 0.2 10 ^3/uL (0-0.8); Eosinophils % (auto) 1.7 % (0.0-7.0); Hematocrit 44.2 % (41.0-53.0); Hemoglobin 14.8 g/dL (13.5-17.5); Lymphocytes # (auto) 2.4 10 ^3/uL (0.4-5.4); Lymphocytes % (auto) 25.9 % (10.0-50.0); Mean Corpuscular Hemoglobin 27.3 pg (28.0-32.0); Mean Corpuscular Hgb Conc. 33.5 g/dL (32.0-36.0); Mean Corpuscular Volume 81.7 fL (80.0-100.0); Monocytes # (auto) 0.7 10 ^3/uL (0-1.3); Monocytes % (auto) 7.7 % (0.0-12.0); Neutrophils % (auto) 64.1 % (37.0-80.0); Nucleated Red Blood Cells % 0.1 %; Platelet Count (auto) 209 10^3/uL (140-450); Red Blood Cells 5.41 10^6/uL (4.5-5.90); Red Cell Distribution Width 13.4 % (11.8-14.3); Urine Blood Negative /uL (Negative); Urine Specific Gravity 1.017 (1.001-1.035); White Blood Cell 9.4 10^3/uL (4.4-10.8)
[2019-08-19 15:27] LABS: Albumin 3.7 g/dL (3.4-5.0); Calcium 8.9 mg/dL (8.5-10.1); Phosphorus 3.6 mg/dL (2.5-4.90); Potassium 4.5 mmol/L (3.5-5.1); Uric Acid 7.5 mg/dL (3.5-7.2)
[2019-08-19 15:28] LABS: Creatinine, Urine 115 mg/dL (30.0-125.0); Protein, Urine 227.8 mg/dL (0.0-11.9)
== END | disposition home or self-care (01) ==
LOC: LAB 14:53
PROVIDERS: ATTEND Internal Medicine
DX: E56.9 Vitamin deficiency, unspecified (principal); R80.9 Proteinuria, unspecified; N18.3 Chronic kidney disease, stage 3 (moderate); D63.1 Anemia in chronic kidney disease; M10.9 Gout, unspecified; N39.0 Urinary tract infection, site not specified; E21.3 Hyperparathyroidism, unspecified
CPT/HCPCS: 36415; 80069; 81003; 82306; 82570; 83970; 84156; 84550; 85025

== ENCOUNTER → 2019-11-07 | Outpatient (CLI) | payer BC ==
[~2019-11-07] MED LIST changes: +LISI-648 PO; -LISI10TA6 PO
[2019-11-07 10:03] LABS: Cholesterol 204 mg/dL (< 200); HDL Cholesterol 26 mg/dL (40-59); LDL Cholesterol 122 mg/dL (< 100); Triglycerides 348 mg/dL (< 150)
== END | disposition home or self-care (01) ==
LOC: LAB 09:18
PROVIDERS: ATTEND Internal Medicine
DX: E11.9 Type 2 diabetes mellitus without complications (principal)
CPT/HCPCS: 36415; 80061; 83036

== ENCOUNTER 2019-11-10 16:18 | Emergency (ER) | payer BC ==
[~2019-11-10] VITALS: Ht 170.2 cm; Wt 125.2 kg
[2019-11-10] MEDS ORDERED: OFLOXACIN OTIC(EAR) 0.3 % DROP 5ML RIGHT EAR SCH (16:58)
[2019-11-10] MEDS ORDERED: SODIUM CHLORIDE 0.9% 1,000 ML IV ONE (17:00)
[2019-11-10] MEDS ORDERED: OFLOXACIN OTIC(EAR) 0.3 % DROP 5ML RIGHT EAR ONE (17:00)
[2019-11-10] MEDS ORDERED: cefTRIAXone 1GM/50ML D5W 50 ML IV ONE (17:00)
[2019-11-10 17:09] LABS: Basophils # (auto) 0.1 10 ^3/uL (0-0.2); Basophils % (auto) 0.5 % (0.0-2.0); Eosinophils # (auto) 0.2 10 ^3/uL (0-0.8); Eosinophils % (auto) 1.9 % (0.0-7.0); Hematocrit 46.9 % (41.0-53.0); Hemoglobin 15.7 g/dL (13.5-17.5); Lymphocytes # (auto) 2.9 10 ^3/uL (0.4-5.4); Lymphocytes % (auto) 27.5 % (10.0-50.0); Mean Corpuscular Hemoglobin 27.7 pg (28.0-32.0); Mean Corpuscular Hgb Conc. 33.5 g/dL (32.0-36.0); Mean Corpuscular Volume 82.7 fL (80.0-100.0); Monocytes % (auto) 9.5 % (0.0-12.0); Neutrophils # (auto) 6.5 10 ^3/uL (1.6-8.6); Neutrophils % (auto) 60.6 % (37.0-80.0); Nucleated Red Blood Cells % 0.2 %; Platelet Count (auto) 229 10^3/uL (140-450); Red Blood Cells 5.67 10^6/uL (4.5-5.90); Red Cell Distribution Width 13.7 % (11.8-14.3); White Blood Cell 10.7 10^3/uL (4.4-10.8)
[2019-11-10 17:24] LABS: Albumin 3.8 g/dL (3.4-5.0); Calcium 8.7 mg/dL (8.5-10.1); Potassium 4.1 mmol/L (3.5-5.1)
[2019-11-10 17:27] LABS: BUN/Creatinine Ratio 17.3; Bilirubin, Total 0.5 mg/dL (0.2-1.0); Total Protein 7.9 g/dL (6.4-8.2)
[2019-11-10 18:25] VITALS: BP 130/88
== END 2019-11-10 18:23 | disposition home or self-care (01) ==
LOC: ER 16:18
DX: G51.0 Bell's palsy (principal); H60.8X1 Other otitis externa, right ear; E11.9 Type 2 diabetes mellitus without complications; I10 Essential (primary) hypertension; E78.5 Hyperlipidemia, unspecified
CPT/HCPCS: 36415; 70450; 80053; 85025; 93005; 96365; 99285; J0696